=== PATIENT | male | born 1980 | race Caucasian/White ===

== ENCOUNTER 2019-02-02 16:18 | Emergency (ER) | payer MEDICARE ==
[~2019-02-02] VITALS: Ht 175.3 cm; Wt 140.6 kg
[~2019-02-02 16:18] MED LIST: ACETAMINOPHEN-1 EAC1 PO; CEPHALEXIN500 MG PO; HYDROCODON-ACE1 EAC8; INDOMETHACIN50 MG PO; MOTRIN800 MG PO; NAPROSYN500 MG PO; NAPROXEN500 MG PO; NORCO 5-325 TA1 EACH PO; ROBAXIN-750750 MG PO
--- OUTSIDE RECORDS SUMMARY | 2019-02-02 16:22 | XMS ---
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 Romelia has no Care Guidelines for this patient. Flory VISIT COUNT (12 MO.) 1 LEATHA Luis TOTAL 1 NOTE: Visits indicate total known visits. ED/UCC VISIT TRACKING (12 MO.) 02/02/2019 16:19 [facility] [place] TYPE: Emergency COMPLAINT: - FALL/R SHOULDER PAIN INPATIENT VISIT TRACKING (12 MO.) No inpatient visits to display in this time frame [email or web address]
[2019-02-02] MEDS ORDERED: CYCLOBENZAPRINE10 MG PO (17:32)
[2019-02-02] MEDS ORDERED: IBUPROFEN800 MG PO (17:32)
== END 2019-02-02 18:10 | disposition home or self-care (01) ==
LOC: ED 16:18
DX: S39.012A Strain of muscle, fascia and tendon of lower back, initial encounter (principal); S43.401A Unspecified sprain of right shoulder joint, initial encounter; F17.200 Nicotine dependence, unspecified, uncomplicated; Z88.5 Allergy status to narcotic agent; Z88.1 Allergy status to other antibiotic agents; W19.XXXA Unspecified fall, initial encounter; Y99.0 Civilian activity done for income or pay
CPT/HCPCS: 72100; 73030; 96372; 99283-25; J1885

== ENCOUNTER 2021-04-17 12:27 | Emergency (ER) | payer MEDICARE ==
[~2021-04-17] VITALS: Ht 175.3 cm; Wt 146.5 kg
[~2021-04-17 12:27] MED LIST changes: +BACTRIM DS TAB1 EACH PO; +CYCLOBENZAPRINE10 MG PO; +IBUPROFEN800 MG PO; +NORCO 7.5-3251 EACH PO; +PYRIDIUM100 MG PO
--- OUTSIDE RECORDS SUMMARY | 2021-04-17 12:30 | XMS ---
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 Romelia has no Care Guidelines for this patient. Care History Medical/Surgical 03/07/2019 [facility] [place] - W IS UNABLE TO CONTACT PATIENT- PLEASE CONTACT CHW AT [phone] DURING BUSINESS HOURS IF PATIENT IS SEEN IN THE ED. 02/03/2019 [facility] [place] - CHW RECEIVED ED CONSULT- CASE MANAGEMENT- NO PCP- - PATIENT CALLED CONTACT NUMBER FOR PATIENT- INVALID NUMBER- - PLEASE HAVE PATIENT UPDATE CONTACT NUMBER - W WILL SEND NO PCP LETTER TO PATIENT E.D. VISIT COUNT (12 MO.) 1 [facility] TOTAL 1 NOTE: Visits indicate total known visits. ED/UCC VISIT TRACKING (12 MO.) 04/17/2021 12:29 [facility] Gomez OR TYPE: Emergency COMPLAINT: - GENITAL PAIN INPATIENT VISIT TRACKING (12 MO.) No inpatient visits to display in this time frame [id number]
[2021-04-17] MEDS ORDERED: CYCLOBENZAPRINE10 MG PO (12:43)
[2021-04-17] MEDS ORDERED: BUPRENORPHINE HC8 MG SL (12:43)
[2021-04-17] MEDS ORDERED: LEVOFLOXACIN500 MG PO (16:46)
== END 2021-04-17 17:06 | disposition home or self-care (01) ==
LOC: ED 12:27
DX: N45.1 Epididymitis (principal); Z88.5 Allergy status to narcotic agent; Z88.8 Allergy status to other drugs, medicaments and biological substances; Z79.899 Other long term (current) drug therapy; Z20.822 Contact with and (suspected) exposure to COVID-19
CPT/HCPCS: 51798; 76870; 80053; 81001; 83605; 85025; 87040; 99284-25; C9803; U0003